=== PATIENT | male | born 1980 | race Hispanic/Latino ===

== ENCOUNTER 2018-05-05 14:39 | Emergency (ER) | payer SELFPAY ==
[~2018-05-05] VITALS: Ht 165.1 cm; Wt 93.2 kg
[2018-05-05] MEDS ORDERED: SERTRALINE HCL25 MG PO (15:12)
[2018-05-05] MEDS ORDERED: REGLAN10 MG PO (18:08)
== END 2018-05-05 18:45 | disposition home or self-care (01) ==
LOC: ED 14:39
DX: R51 Headache (principal); F17.200 Nicotine dependence, unspecified, uncomplicated; Z88.7 Allergy status to serum and vaccine; Z79.899 Other long term (current) drug therapy
CPT/HCPCS: 99283